=== PATIENT | male | born 1995 | race Caucasian/White ===

== ENCOUNTER → 2018-06-26 | Outpatient (CLI) | payer OTHER ==
--- NOTE | 2018-06-26 14:33 | WOMENS IMAGING REPORT ---
EXAM DESCRIPTION: U/S BREAST UNILAT LIMITED COMPLETED DATE/TIME: 06/26/2018 2:27 pm REASON FOR STUDY: N63.22 UNSPECIFIED LUMP IN THE LEFT BREAST, UPPER INNER QUADRANT N63.22 UNSPECIFI ED LUMP IN THE LEFT BREAST, UPPER INNER QUAD COMPARISON: None. TECHNIQUE: Real-time and static grayscale imaging performed of the right and left breast targeted to the area of clinical concern. Selected color Doppler images recorded. LIMITATIONS: None. FINDINGS: MASS: There is bilateral gynecomastia with retroareolar hypoechoic breast parenchyma. No worrisome features. No acoustic absorption. No focal mass or nodule. No cysts. OTHER: No other significant finding. IMPRESSION: Bilateral male breast gynecomastia. BIRAD: Negative. RECOMMENDATION: RECOMMENDED FOLLOW-UP: Follow-up as clinically indicated. COMMENT: The [employer] ([employer]) has developed recommendations for screening MRI of the breasts in certain patient populations, to be used in conjunction with mammography. Breast MRI s urveillance may be appropriate for women with more than 20% lifetime risk of developing breast cancer as determined by genetic testing, significant family history of the disease, or history of mantle r adiation for Hodgkins Disease. [employer]CR Practice Guidelines 2008. TECHNICAL DOCUMENTATION: JOB ID: [id number] [employer]- All Rights Reserved Reading location - IP/workstation name: [email or web address]
== END ==
LOC: WI 13:45
PROVIDERS: ATTEND Nurse Practitioner Family
DX: N63.22 Unspecified lump in the left breast, upper inner quadrant (principal)
CPT/HCPCS: 76642

== ENCOUNTER 2018-09-11 08:20 | Day surgery (SDC) | payer OTHER ==
[~2018-09-11 08:20] MED LIST: CEFAZOLIN 2 GM/D5W RTU 2 GM/50 ML RTUPB IV ONE; CEFAZOLIN 2 GM/D5W RTU 2 GM/50 ML RTUPB IV PRN; LACTATED RINGERS 1000 ML IV PRN; LIDOCAINE 0.5% INJ-PF (5 MG/ML) 50 ML SDV SUBCUT PRN
[2018-09-11] MEDS ORDERED: BUPIVACAINE HCL 0.5%-EPI 1:200000 INJ/PF 30 ML VIAL ONE (09:01)
[2018-09-11] MEDS ORDERED: FENTANYL CITRATE INJ/PF 250 MCG/5 ML AMPULE ONE (10:20)
[2018-09-11] MEDS ORDERED: PROPOFOL INJ 200 MG/20 ML VIAL IV ONE (10:21)
[2018-09-11] MEDS ORDERED: MIDAZOLAM 2 MG/2 ML INJ ONE (10:21)
[2018-09-11] MEDS ORDERED: PROMETHAZINE HCL INJ 25 MG/1 ML VIAL IV PRN ×2 (11:05)
[2018-09-11] MEDS ORDERED: MEPERIDINE HCL/PF INJ 25 MG/1 ML DISP.SYRIN IV PRN (11:05)
[2018-09-11] MEDS ORDERED: FENTANYL CITRATE INJ/PF 100 MCG/2 ML AMPUL IV PRN ×3 (11:05)
[2018-09-11] MEDS ORDERED: OXYCODONE-ACETAMINOPHEN 5-325 MG TABLET PO PRN ×3 (11:05→12:02)
[2018-09-11] MEDS ORDERED: DIPHENHYDRAMINE HCL 50 MG/ML VIAL IV PRN (11:05)
[2018-09-11] MEDS ORDERED: MORPHINE SULFATE 10 MG/ML INJ IV PRN (11:05)
--- NOTE | 2018-09-11 12:00 | Operative Report ---
Nonrecallable Operative Report DATE OF SURGERY: 09/11/18 PREOPERATIVE DIAGNOSIS: gynecomastia POSTOPERATIVE DIAGNOSIS: gynecomastia OPERATION: bilateral mastectomy SURGEON: JEFERSON MATHIS 1ST SPLICER APPRENTICE: KATYA KIRK ANESTHESIA: GA TISSUE REMOVED OR ALTERED: bilat breast COMPLICATIONS: none ESTIMATED BLOOD LOSS: 25cc INTRAOPERATIVE FINDINGS: see dictation PROCEDURE: see dictation
--- NOTE | 2018-09-11 12:02 | Discharge Summary ---
Discharge Summary (SDC) - Discharge Final Diagnosis: gynecomastia bilateral Date of Surgery: 09/11/18 Condition: Good Treatment or Instructions: keep anna wrap on till am then ok to shower, then replace anna wrap Referrals: TWIN MARTINEZ FNP-C [Primary Care Provider] - Discharge Activity: Activity As Tolerated - pt needs a f/u with me in 7-10 day., No Lifting Over 10 Pounds
[2018-09-11] MEDS ORDERED: NALOXONE HCL INJ/PF 0.4 MG/1 ML SDV ONE (12:05)
--- NOTE | 2018-09-11 12:49 | OPERATIVE REPORT E ---
Operative Report NAME: CARMITA MORALES : 1995 AGE: 22Y DATE OF SURGERY: 09/11/2018 ROOM: PREOPERATIVE DIAGNOSIS: Bilateral gynecomastia. POSTOPERATIVE DIAGNOSIS: Bilateral gynecomastia. OPERATIVE PROCEDURE: Bilateral simple mastectomy. SURGEON: JEFERSON MATHIS M.D. [employer]SEMBLER SURGEON: KAREEM Yepez, who was present for the entire case for wound retraction and wound closure. ANESTHESIA: General. PROCEDURE: The patient was brought to the operating room awake and alert, in stable condition, placed on the operating table in supine position, induced under general anesthesia, and intubated. The chest was prepped and draped in the usual sterile manner for the procedure. After appropriate time out and site verification, we turned attention first to the right breast. A circumareolar incision was made from 9 o'clock to 3 o'clock position around the areola. Dissection through subcutaneous tissue with Bovie cautery to raise the inferior flap was first accomplished. We then reached the fascia of the pectoralis major muscle and dissected the breast tissue up off the fascia from a caudal to cranial direction. We continued our dissection medially and laterally to the latissimus muscle laterally and to the sternal margin medially. We continued this circumferentially up into the pectoralis fascia above the incision. We excised that breast. Hemostasis was obtained with Bovie cautery. The wound was irrigated with normal saline and suctioned dry. Hemostasis was noted to be intact. The subcutaneous tissue was reapproximated with interrupted 3-0 Vicryl sutures, and the skin was reapproximated with intracuticular 4-0 Caprosyn. Attention was then turned to the left side. Similarly, a superior and inferior flap was raised. We started this side cephalad, dissected the breast tissue away from the subcutaneous tissue onto the chest wall, identifying the pectoralis major muscle, and then medially to the sternal margin and laterally to the latissimus muscle. We dissected the breast off the pectoralis muscle from a cranial to caudal direction, excising the breast tissue. Hemostasis similarly was obtained with Bovie cautery. The wound was irrigated with normal saline and suctioned dry. Subcutaneous tissue was reapproximated with subcutaneous 3-0 Vicryl, and the skin was reapproximated with intracuticular 3-0 Biosyn. Steri-Strips were placed on both breast incisions and a sterile dressing was applied, which concluded the procedure. Estimated blood loss was less than 25 mL combined for both sides. Sponge and needle counts were correct x2. The patient was awakened in the operating room, extubated, and transferred to recovery in stable condition, no complications. DICTATING PHYSICIAN: JEFERSON MATHIS M.D. [id number] PHY#: [id number] ID: [id number] JOB#: [id number] ACCT: [id number] cc:JEFERSON MATHIS M.D. >
[2018-09-11] MEDS ORDERED: ONDANSETRON HCL INJ/PF 4 MG/2 ML SDV ONE ×2 (13:32→13:52)
[2018-09-11] MEDS ORDERED: GLYCOPYRROLATE 1 MG/5 ML SYRINGE ONE (13:52)
[2018-09-11] MEDS ORDERED: LIDOCAINE 2% INJ-PF (20 MG/ML) 2 ML AMPUL ONE (13:52)
[2018-09-11] MEDS ORDERED: DEXAMETHASONE SOD PHOSPHATE INJ 4 MG/1 ML VIAL ONE (13:52)
[2018-09-11] MEDS ORDERED: ROCURONIUM BROMIDE INJ 50 MG/5 ML VIAL IV ONE (13:52)
[2018-09-11] MEDS ORDERED: KETOROLAC TROMETHAMINE 60 MG/2 ML SDV ONE (13:52)
[2018-09-11] MEDS ORDERED: NEOSTIGMINE METHYLSULFATE 10 MG/10 ML VIAL ONE (13:52)
[2018-09-11 14:50] VITALS: BP 125/89
== END 2018-09-11 14:40 | disposition home or self-care (01) ==
LOC: OROUT 08:20
PROVIDERS: ATTEND Surgery
DX: N62 Hypertrophy of breast (principal)
CPT/HCPCS: 88307 ×2; 19300; J2250; J3490 ×3; J1100; J1885; J3010; J2310; J2710; J2405; J2704; J0690; 400